=== PATIENT | male | born 1980 | race African-American/Black ===

== ENCOUNTER 2019-06-26 20:52 | Emergency (ER) | payer SELFPAY ==
[~2019-06-26] VITALS: Ht 172.7 cm; Wt 77.0 kg
[2019-06-26] MEDS ORDERED: SODIUM CHLORIDE 0.9% 1,000 ML IV ONE (21:29)
[2019-06-26 21:54] LABS: BASOPHILS % 0.4 % (0.0-2.0); EOSINOPHILS % 0.3 % (0.0-5.0); HEMOGLOBIN. 14.5 g/dL (14.0-18.0); LYMPHOCYTES % 17.9 % (20.0-50.0); MEAN CORPUSCULAR VOLUME 95.4 fL (80.0-94.0); MEAN PLATELET VOLUME 7.4 fl (7.4-10.4); MONOCYTES % 5.8 % (2.0-8.0); NEUTROPHILS % 75.6 % (40.0-76.0); PLATELET 207 x1000/uL (130-400); RED BLOOD CELL COUNT 4.51 mill/uL (4.7-6.1); RED CELL DISTRIBUTION WIDTH 13.7 % (11.6-14.6)
[2019-06-26 21:57] LABS: CHLORIDE 107 mEq/L (98-107)
[2019-06-26 22:02] LABS: ETHANOL BLOOD 145 mg/dL
[2019-06-27 03:02] VITALS: BP 118/71
== END 2019-06-27 03:18 | disposition home or self-care (01) ==
LOC: ER 20:52
DX: F10.129 Alcohol abuse with intoxication, unspecified (principal); R41.82 Altered mental status, unspecified; Y90.6 Blood alcohol level of 120-199 mg/100 ml
CPT/HCPCS: 36415; 70450; 80053; 80320; 82962; 85025; 96360; 99285; J7030; G0480